=== PATIENT | female | born 1965 | race Caucasian/White ===

== ENCOUNTER 2017-01-02 16:20 | Emergency (ER) | payer OTHER ==
[~2017-01-02] VITALS: Ht 162.6 cm; Wt 63.7 kg
[2017-01-02] MEDS ORDERED: ABILIFY10 MG PO (17:02)
[2017-01-02] MEDS ORDERED: AMLODIPINE BESYL5 MG PO (17:02)
[2017-01-02] MEDS ORDERED: VENLAFAXINE H37.5 M3 PO ×2 (17:03→17:05)
[2017-01-02] MEDS ORDERED: VENLAFAXINE HCL75 M3 PO ×2 (17:03→17:05)
[2017-01-02 17:12] VITALS: BP 184/87
== END 2017-01-02 17:19 | disposition home or self-care (01) ==
LOC: EME 16:20
DX: F32.9 Major depressive disorder, single episode, unspecified (principal); I10 Essential (primary) hypertension; Z76.0 Encounter for issue of repeat prescription
CPT/HCPCS: 99281; 99284

== ENCOUNTER 2017-03-10 21:06 | Emergency (ER) | payer OTHER ==
[~2017-03-10] VITALS: Ht 162.6 cm; Wt 71.4 kg
[~2017-03-10 21:06] MED LIST: ABILIFY10 MG PO; AMLODIPINE BESYL5 MG PO; VENLAFAXINE H37.5 M3 PO; VENLAFAXINE HCL75 M3 PO
[2017-03-10 21:50] LABS: ADD MIUA? YES; BILIRUBIN NEGATIVE; BLOOD LARGE; COLOR YELLOW ((YELLOW)); GLUCOSE (STRIP) NEGATIVE; KETONES NEGATIVE; LEUKOCYTES NEGATIVE; NITRITE NEGATIVE; PROTEIN (STRIP) NEGATIVE; SPECIFIC GRAVITY 1.016 (1.000-1.030); UROBILINOGEN 0.2 MG/DL (0.2-1.0)
[2017-03-10 22:00] LABS: BACTERIA RARE /HPF; EPITHELIAL CELLS 1+ /HPF; MUCUS NONE SEEN /LPF; RED BLOOD CELLS 15-20 /HPF (0-5); UCUL ADDED? NO; WHITE BLOOD CELLS 0-5 /HPF (0-5)
[2017-03-10] MEDS ORDERED: CIPRO500 MG PO (23:01)
[2017-03-10] MEDS ORDERED: PYRIDIUM100 MG PO (23:01)
[2017-03-10 23:08] VITALS: BP 144/83
== END 2017-03-10 23:08 | disposition home or self-care (01) ==
LOC: EME 21:06 → RME 21:06
DX: N39.0 Urinary tract infection, site not specified (principal); Z87.440 Personal history of urinary (tract) infections; Z87.891 Personal history of nicotine dependence
CPT/HCPCS: 81003; 99281; 99283

== ENCOUNTER 2018-03-03 15:53 | Emergency (ER) | payer OTHER ==
[~2018-03-03] VITALS: Ht 162.6 cm; Wt 82.1 kg
[~2018-03-03 15:53] MED LIST changes: +CIPRO500 MG PO; +PYRIDIUM100 MG PO
[2018-03-03 16:23] LABS: APPEARANCE CLOUDY ((CLEAR)); BILIRUBIN NEGATIVE; BLOOD LARGE; COLOR AMBER ((YELLOW)); GLUCOSE (STRIP) NEGATIVE; KETONES NEGATIVE; LEUKOCYTES SMALL; NITRITE POSITIVE; PROTEIN (STRIP) >=500; SPECIFIC GRAVITY 1.016 (1.000-1.030); UROBILINOGEN 0.2 MG/DL (0.2-1.0)
[2018-03-03 16:28] LABS: HEMATOCRIT 36.9 % (36.0-46.0); HEMOGLOBIN 12.9 G/DL (11.9-15.5); MCH 32.9 PG (29.0-34.0); MCV 94.1 FL (83-99); PLATELET COUNT 262 K/uL (156-360); RBC DIS.WIDTH-CV 12.1 % (11.8-14.6); RBC DIS.WIDTH-SD 42.3 % (39-53); RED BLOOD COUNT 3.92 M/uL (3.80-5.20); WHITE BLOOD COUNT 8.5 K/uL (4.1-10.2)
[2018-03-03] MEDS ORDERED: KEFLEX500 MG PO (16:41)
[2018-03-03] MEDS ORDERED: ZOFRAN ODT4 MG PO (16:43)
[2018-03-03 16:46] LABS: CHLORIDE 102 mEq/L (99-109); POTASSIUM 3.8 mEq/L (3.7-5.4); SODIUM 136 mEq/L (136-147)
[2018-03-03 16:47] LABS: GLUCOSE 126 mg/dL (70-99)
[2018-03-03 16:51] LABS: CREATININE 1.1 mg/dL (0.6-1.3); GFR ESTIMATE (CALCULATED) 55 mL/min/
[2018-03-03 16:52] LABS: UREA NITROGEN (BUN) 15 mg/dL (9-23)
[2018-03-03 17:01] LABS: EPITHELIAL CELLS 2+ /HPF; RED BLOOD CELLS 20-30 /HPF (0-5); WHITE BLOOD CELLS 20-30 /HPF (0-5)
[2018-03-03 17:02] LABS: BACTERIA 2+ /HPF; MUCUS NONE SEEN /LPF; UCUL ADDED? YES
[2018-03-03 17:17] VITALS: BP 142/91
== END 2018-03-03 17:20 | disposition home or self-care (01) ==
LOC: EME 15:53
PROVIDERS: Nurse Practitioner Family
DX: N12 Tubulo-interstitial nephritis, not specified as acute or chronic (principal); I10 Essential (primary) hypertension; Z90.710 Acquired absence of both cervix and uterus; Z72.0 Tobacco use; Z87.440 Personal history of urinary (tract) infections
CPT/HCPCS: 80048; 81003; 83605; 85027; 87077; 87086; 87186; 99281; 99285